=== PATIENT | female | born 1955 ===

== ENCOUNTER → 2016-07-23 | Outpatient (CLI) | payer SELFPAY ==
--- NOTE | 2016-07-23 16:39 | MR ---
EXAMINATION: MRI lumbar spine HISTORY: Back pain COMPARISON: None TECHNIQUE: Multiplanar and multisequence images obtained through the lumbar spine without contrast. FINDINGS: There is straightening of the normal lumbar lordosis. The vertebral body heights appear gr ossly maintained. There is however mild edema within the L4 and L5 vertebral bodies without signific ant vertebral body height loss. The SI joints are symmetric. The distal spinal cord appears normal a nd the conus terminates at L1-L2. There is ectasia of the infrarenal abdominal aorta measuring up to 3.3 cm. T12-L1: Unremarkable. L1-L2: Tiny diffuse disc bulge without significant spinal canal or neural foraminal stenosis. L2-L3: Moderate diffuse disc bulge with mild facet and ligamentum flavum hypertrophy. Mild spinal ca nal stenosis. Moderate bilateral neural foraminal stenosis. L3-L4: Small to moderate diffuse disc bulge with mild spinal canal stenosis. Moderate bilateral neur al foraminal stenosis. L4-5: Moderate to large diffuse disc bulge with [id number] spinal canal stenosis. Moderate rod ateral neural foraminal stenosis. L5-S1: Small to moderate diffuse disc bulge without significant spinal canal stenosis. Moderate to s evere bilateral neural foraminal stenosis. IMPRESSION: 1. Mild edema within the L4 and L5 vertebral bodies. Likely insufficiency fractures without signific ant vertebral body height loss. 2. 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
== END ==
LOC: MW.MRI 13:07
PROVIDERS: ATTEND Physician Assistant
DX: M54.40 Lumbago with sciatica, unspecified side (principal); M51.36 Other intervertebral disc degeneration, lumbar region; R60.9 Edema, unspecified; R20.2 Paresthesia of skin
CPT/HCPCS: 72148; 72148-26